=== PATIENT | male | born 1995 | race Caucasian/White ===

== ENCOUNTER 2022-06-26 10:07 | Emergency (ER) | payer SELFPAY ==
[~2022-06-26] VITALS: Ht 185 cm; Wt 99.7 kg
[2022-06-26] MEDS ORDERED: RT-ALBUTEROL HFA 8.5 GM INHALER IH STA (10:32)
--- NOTE | 2022-06-26 10:35 | ED General ---
General Chief Complaint: COVID19 Suspect/Confirmed Stated Complaint: COVID + | NECK AND LOWER BACK PAIN Nursing Triage Note: PT PRESENTS TO ED WITH COMPLAINTS OF NAUSEA, BODY ACHES, BACK AND NECK PAIN, AND DIAHRREA. PT STATES HIS FAMILY HAVE ALL BEEN SICK RECENTLY AND HE WAS DIAGNOSED BY THE HEALTH DEPARTMENT COVID POSITIVE THIS AM. PT REPORTS HE WOKE UP WITH [facility] LAST NIGHT. PT HAS NOT HAD ANY FEVER REDUCERS. Source of Information: Patient Exam Limitations: No Limitations History of Present Illness Date Seen by Provider: Jun 26, 2022 Time Seen by Provider: 10:23 Allergies and Home Medications Allergies Coded Allergies: Penicillins (Verified Allergy, Unknown, 06/26/22) Past Edfaqep-Czcslp-Nnputw Hx Patient Social History Tobacco Use?: Yes Tobacco type used: Cigarettes Smoking Status: Current Everyday Smoker Substance use?: No Alcohol Use?: No Pt feels they are or have been: No Physical Exam Vital Signs Vital Signs - First Documented 06/26/22 10:21 Temp 37.5 Pulse 117 Resp 18 B/P (MAP) 134/96 (109) Pulse Ox 98 Capillary Refill : Less Than 3 Seconds Height, Weight, BMI Height: '" Weight: lbs. oz. kg; 29.00 BMI Method: Progress/Results/Core Measures Suspected Sepsis SIRS Temperature: Pulse: 117 Respiratory Rate: 18 Laboratory Tests 06/26/22 10:50: White Blood Count 9.4 Blood Pressure 134 /96 Mean: 109 Laboratory Tests 06/26/22 10:50: Platelet Count 298 06/26/22 11:09: Creatinine 1.16, Total Bilirubin 0.4 Results/Orders Lab Results Laboratory Tests Test 06/26/22 10:50 06/26/22 11:09 Range/Units White Blood Count 9.4 4.3-11.0 10^3/uL Red Blood Count 5.05 4.30-5.52 10^6/uL Hemoglobin 14.7 13.3-17.7 g/dL Hematocrit 43 40-54 % Mean Corpuscular Volume 86 80-99 fL Mean Corpuscular Hemoglobin 29 25-34 pg Mean Corpuscular Hemoglobin Concent 34 32-36 g/dL Red Cell Distribution Width 12.4 10.0-14.5 % Platelet Count 298 130-400 10^3/uL Mean Platelet Volume 8.8 L 9.0-12.2 fL Immature Granulocyte % (Auto) 1 % Neutrophils (%) (Auto) 84 H 42-75 % Lymphocytes (%) (Auto) 4 L 12-44 % Monocytes (%) (Auto) 11 0-12 % Eosinophils (%) (Auto) 0 0-10 % Basophils (%) (Auto) 0 0-10 % Neutrophils # (Auto) 7.9 H 1.8-7.8 10^3/uL Lymphocytes # (Auto) 0.3 L 1.0-4.0 10^3/uL Monocytes # (Auto) 1.0 0.0-1.0 10^3/uL Eosinophils # (Auto) 0.0 0.0-0.3 10^3/uL Basophils # (Auto) 0.0 0.0-0.1 10^3/uL Immature Granulocyte # (Auto) 0.1 0.0-0.1 10^3/uL Neutrophils % (Manual) 89 % Lymphocytes % (Manual) 5 % Monocytes % (Manual) 5 % Eosinophils % (Manual) 1 % Basophils % (Manual) 0 % Band Neutrophils 0 % Blood Morphology Comment NORMAL Sodium Level 133 L 135-145 MMOL/L Potassium Level 4.8 3.6-5.0 MMOL/L Chloride Level 103 98-107 MMOL/L Carbon Dioxide Level 17 L 21-32 MMOL/L Anion Gap 13 5-14 MMOL/L Blood Urea Nitrogen 13 7-18 MG/DL Creatinine 1.16 0.60-1.30 MG/DL Estimat Glomerular Filtration Rate 89 BUN/Creatinine Ratio 11 Glucose Level 82 70-105 MG/DL Calcium Level 9.7 8.5-10.1 MG/DL Corrected Calcium 9.4 8.5-10.1 MG/DL Magnesium Level 1.8 1.6-2.4 MG/DL Total Bilirubin 0.4 0.1-1.0 MG/DL Aspartate Amino Transf (AST/SGOT) 35 H 5-34 U/L Alanine Aminotransferase (ALT/SGPT) 52 0-55 U/L Alkaline Phosphatase 82 40-136 U/L Total Protein 7.4 6.4-8.2 GM/DL Albumin 4.4 3.2-4.5 GM/DL My Orders Orders - ESSENCE NARANJO MD Albuterol Inhaler (Albuterol) (06/26/22 10:32) Ed Iv/Invasive Line Start (06/26/22 10:32) Lactated Ringers (Lr 1000 Ml Iv Solution (06/26/22 10:45) Ondansetron Injection (Zofran Injectio (06/26/22 10:45) Cbc With Automated Diff (06/26/22 10:32) Comprehensive Metabolic Panel (06/26/22 10:32) Magnesium (06/26/22 10:32) Ketorolac Injection (Toradol Injection) (06/26/22 10:45) Rx-Nirmatrelvir/Ritonavir(Eua) (Rx-Paxlo (06/26/22 10:45) Manual Differential (06/26/22 10:50) Medications Given in ED Current Medications Medications Dose Ordered Sig/Rikki Route Start Time Stop Time Status Last Admin Dose Admin Ketorolac Tromethamine 30 mg ONCE ONCE IVP 06/26/22 10:45 06/26/22 10:46 DC 06/26/22 11:04 30 MG Lactated Ringer's 1,000 ml @ 0 mls/hr Q0M ONCE IV 06/26/22 10:45 06/26/22 10:46 DC 06/26/22 11:05 0 MLS/HR Ondansetron HCl 8 mg ONCE ONCE IVP 06/26/22 10:45 06/26/22 10:46 DC 06/26/22 11:04 8 MG Vital Signs/I&O 06/26/22 10:21 Temp 37.5 Pulse 117 Resp 18 B/P (MAP) 134/96 (109) Pulse Ox 98 Capillary Refill : Less Than 3 Seconds Blood Pressure Mean: 109 Departure Impression Primary Impression: COVID-19 Additional Impressions: Bronchospasm Nausea & vomiting Qualified Codes: R11.2 - Nausea with vomiting, unspecified Chronic vomiting Disposition: HOME, SELF-CARE Condition: Improved Departure-Patient Inst. Decision time for Depature: 12:00 Referrals: NO,LOCAL PHYSICIAN (PCP/Family) Primary Care Physician Patient Instructions: COVID-19 ED, Nirmatrelvir and Ritonavir FDA Fact Sheet Add. Discharge Instructions: Complete the entire 10 doses of Paxlovid as long as you are tolerating it well. Please read the FDA fact sheet provided. Drink plenty of clear liquids to stay well-hydrated. Start with a clear liquid diet and gradually advance your diet with small quantities of bland food as tolerated. Chew your food well and drink plenty of clear liquids with your meals. Try to eat a well-balanced diet in addition to staying well-hydrated. Take a multivitamin daily if your stomach will tolerate it. You may use Tylenol (acetaminophen) up to 1000 mg every 6 hours as needed for pain or fever. Add ibuprofen up to 600 mg every 6 hours as needed for pain or fever. You may use the Zofran (ondansetron) as prescribed for nausea and vomiting. Use your inhaler up to 4 puffs in a 4-hour period of time. If you require more puffs than that, please return to the emergency room. Work on quitting smoking as rapidly as possible. Stay active and move about the house often. Change positions often when lying down. Try to spend some time lying on your stomach if you can. This will improve breathing and help prevent pneumonia and blood clots. If weather is nice, you may walk around outside as well. Obtain a pulse oximeter and check your pulse ox a few times a day or anytime you feel more short of breath. If you have multiple measurements less than 92% or any measurements less than 90%, please return to the emergency room for further evaluation. Staying quarantine for 5 full days. You may be released from quarantine on July 01 as long as your primary symptoms have resolved. Mask an additional 5 days after that when you are around others. Your close contacts should mask for 10 days after their last exposure to you. Return to care if you have any other issues or concerns or if you feel your condition is worsening despite following these instructions. All discharge instructions reviewed with patient and/or family. Voiced unde rstanding. Scripts Ondansetron (Ondansetron Odt) 4 Mg Tab.rapdis 4 MG SL Q4H PRN for NAUSEA/VOMITING, #10 TAB Prov: ESSENCE NARANJO MD 06/26/22 Work/School Note: Work Release Form Date Seen in the Emergency Department: Jun 26, 2022 Return to Work: Jul 01, 2022 Restrictions: Return-No Fever (24hrs), Return-No Vomiting(24hrs) Other Restrictions Listed Below: May return after 5-day quarantine if primary symptoms resolved. Restrictions: Mask an additional 5 days after 5-day quarantine. ESSENCE NARANJO MD Jun 26, 2022 10:35
[2022-06-26] MEDS ORDERED: ONDANSETRON 4 MG/2 ML (SDV) Z0FRAN IVP ONE (10:45)
[2022-06-26] MEDS ORDERED: LACTATED RINGERS 1,000 ML IV ONE (10:45)
[2022-06-26] MEDS ORDERED: RX-NIRMATRELVIR/RITONAVIR (PAXLOVID) #30 TABS PO SCH (10:45)
[2022-06-26] MEDS ORDERED: KETOROLAC 30 MG/ML VIAL IVP ONE (10:45)
[2022-06-26 11:00] LABS: BASOPHILS % (AUTO) 0 % (0-10); EOSINOPHILS % (AUTO) 0 % (0-10); HEMATOCRIT 43 % (40-54); HEMOGLOBIN 14.7 g/dL (13.3-17.7); LYMPHOCYTES # (AUTO) 0.3 10^3/uL (1.0-4.0); LYMPHOCYTES % (AUTO) 4 % (12-44); MEAN CORPUSCULAR HEMOGLOBIN 29 pg (25-34); MEAN CORPUSCULAR HGB CONC 34 g/dL (32-36); MEAN CORPUSCULAR VOLUME 86 fL (80-99); MEAN PLATELET VOLUME 8.8 fL (9.0-12.2); MONOCYTES % (AUTO) 11 % (0-12); NEUTROPHILS # (AUTO) 7.9 10^3/uL (1.8-7.8); NEUTROPHILS % (AUTO) 84 % (42-75); PLATELET COUNT 298 10^3/uL (130-400); WHITE BLOOD COUNT 9.4 10^3/uL (4.3-11.0)
[2022-06-26 11:27] LABS: ALBUMIN 4.4 GM/DL (3.2-4.5)
[2022-06-26 11:28] LABS: POTASSIUM 4.8 MMOL/L (3.6-5.0)
[2022-06-26 11:29] LABS: CALCIUM 9.7 MG/DL (8.5-10.1)
[2022-06-26 11:30] LABS: TOTAL PROTEIN 7.4 GM/DL (6.4-8.2)
[2022-06-26 11:30] LABS: BAND NEUTROPHILS 0 %; BASOPHILS % (MANUAL) 0 %; EOSINOPHILS % (MANUAL) 1 %; LYMPHOCYTES % (MANUAL) 5 %; MONOCYTES % (MANUAL) 5 %; NEUTROPHILS % (MANUAL) 89 %
[2022-06-26 11:31] LABS: RBC MORPH NORMAL
[2022-06-26 11:32] LABS: BILIRUBIN,TOTAL 0.4 MG/DL (0.1-1.0)
[2022-06-26 11:34] LABS: CREATININE SERUM 1.16 MG/DL (0.60-1.30)
[2022-06-26 11:37] LABS: MAGNESIUM 1.8 MG/DL (1.6-2.4)
[2022-06-26] MEDS ORDERED: ONDA4TAB11 SL (12:05)
[2022-06-26 12:28] VITALS: BP 108/61
== END 2022-06-26 12:28 | disposition home or self-care (01) ==
LOC: ER 10:12
DX: U07.1 COVID-19 (principal); J98.01 Acute bronchospasm; R11.2 Nausea with vomiting, unspecified; F17.210 Nicotine dependence, cigarettes, uncomplicated
CPT/HCPCS: 36415; 80053; 83735; 85007; 85027; 99281